=== PATIENT | male | born 1955 | race Caucasian/White ===

== ENCOUNTER 2021-10-23 12:15 | Emergency (ER) | payer BC, MEDICAID ==
[~2021-10-23] VITALS: Ht 170.2 cm; Wt 90.4 kg
[~2021-10-23 12:15] MED LIST: ASPI81CT33 PO; CLOP75TA PO; GLYB5TAB14 PO; METO25TA PO; SIMV80TA67 PO; TRAM50TA3 PO; [UNRECOGNIZED DRUG - CODE] PO; [UNRECOGNIZED DRUG - CODE] PO
[2021-10-23 12:27] VITALS: BP 148/90
--- NOTE | 2021-10-23 12:35 | NUR ---
PT AMB TO BED 6
--- NOTE | 2021-10-23 13:00 | NUR ---
66YO MALE PT C/O R FACIAL NUMBING. PT STATES SUDDEN ONSET THIS MORNING AND WAS UNAWARE UNTIL DAUGHTER NOTICED. PT PRESENTS WITH R SIDED FACIAL WEAKNESS AND UNABLE TO CONTROL FACIAL MUSCLE. DENIES LOSS OF SENSATION OR INJURY. PT ALSO C/O WATERY R EYE AND PRESENTS WITH REDDENED EYE. NO DISCHARGE OR FOREIGN OBJECT NOTED. PT ABLE TO MOVE EYE WITH EASE, DENIES LOSS OF VISION. DENIES CHEST PAIN, N/V/D OR SOB. PT AAOX4, RESPIRATIONS EVEN AND UNLABORED. HX:DIABETES NKA
[2021-10-23 13:20] LABS: BASOPHILS % (AUTO) 0.3 % (0.0-2.0); EOSINOPHILS # (AUTO) 0.1 K/uL (0-0.4); EOSINOPHILS % (AUTO) 1.2 % (0.0-4.0); HEMATOCRIT 45.2 % (36-52); HEMOGLOBIN 15.1 g/dL (12.0-18.0); LYMPHOCYTES # (AUTO) 1.8 K/uL (2.0-11.5); LYMPHOCYTES % (AUTO) 31.5 % (20.5-51.1); MEAN CORPUSCULAR HEMOGLOBIN 29 pg (27-31); MEAN CORPUSCULAR HGB CONC 33 g/dL (33-37); MONOCYTES # (AUTO) 0.5 K/uL (0.8-1.0); MONOCYTES % (AUTO) 9.4 % (1.7-9.3); NEUTROPHILS # (AUTO) 3.2 K/uL (1.8-7.7); NEUTROPHILS % (AUTO) 57.6 % (42.2-75.2); PLATELET COUNT (AUTO) 142 K/uL (140-450); RED BLOOD CELL COUNT(AUTO) 5.14 MIL/uL (4.20-6.10); RED CELL DISTRIBUTION WIDTH 13.7 % (11.6-13.7); WHITE BLOOD COUNT (AUTO) 5.6 K/uL (4.8-10.8)
[2021-10-23 13:53] LABS: ALBUMIN 3.7 g/dL (3.4-5.0); CARBON DIOXIDE 29.2 mmol/L (21-32); POTASSIUM 4.2 mmol/L (3.5-5.1); TOTAL BILIRUBIN 0.6 mg/dL (0.0-1.0)
[2021-10-23] MEDS ORDERED: NACL 0.9% 2,000 ML IV ONE (14:50)
[2021-10-23] MEDS ORDERED: INSULIN REGULAR, HUMAN 100 UNIT/ML VIAL IVP ONE (14:50)
[2021-10-23 15:05] LABS: APPEARANCE,URINE CLEAR (CLEAR); BILIRUBIN,URINE NEGATIVE (NEGATIVE); BLOOD, URINE NEGATIVE (NEGATIVE); COLOR,URINE YELLOW (YELLOW); LEUKOCYTE ESTERASE ,URINE NEGATIVE (NEGATIVE); NITRITE, URINE NEGATIVE (NEGATIVE); UGLUCOSE 3+ (NEGATIVE)
[2021-10-23] MEDS ORDERED: cefTRIAXone 1,000 MG VIAL ONE (15:15)
[2021-10-23] MEDS ORDERED: POLY15SO74 RIGHT EYE (15:25)
[2021-10-23] MEDS ORDERED: PRED20TA5 PO (15:25)
[2021-10-23] MEDS ORDERED: METF-1243 PO (15:25)
[2021-10-23 17:05] VITALS: BP 142/87
--- NOTE | 2021-10-23 17:12 | NUR ---
Patient discharged with v/s stable. Written and verbal after care instructions FOR NICK PALSY given and explained. Patient alert, oriented and verbalized understanding of instructions. Ambulatory with steady gait. All questions addressed prior to discharge. ID band removed. Patient advised to follow up with PMD. Rx of METFORMIN, PREDNISONE AND ARTIFICIAL TEARS 15,ML given.Opportunity to ask questions provided and answered.
--- NOTE | 2021-10-25 19:32 | NUR ---
LATE ENTRY. NS 0.9% BOLUS ENDED AT 1712 ON 10/23/21
== END 2021-10-23 17:12 | disposition home or self-care (01) ==
LOC: MED 12:15
DX: A41.9 Sepsis, unspecified organism (principal); Z20.822 Contact with and (suspected) exposure to COVID-19; E11.65 Type 2 diabetes mellitus with hyperglycemia; I10 Essential (primary) hypertension; I25.10 Atherosclerotic heart disease of native coronary artery without angina pectoris; Z79.4 Long term (current) use of insulin; Z79.899 Other long term (current) drug therapy; Z98.890 Other specified postprocedural states
CPT/HCPCS: 36415; 70450; 80053; 81003; 83605; 85025; 87040; 87426; 96361; 96374; 99291; J1815; J7030; J0696

== ENCOUNTER 2022-05-13 16:27 | Emergency (ER) | payer BC ==
[~2022-05-13] VITALS: Ht 165.1 cm; Wt 87.5 kg
[~2022-05-13 16:27] MED LIST changes: +METF-1243 PO; +POLY15SO74 RIGHT EYE; +PRED20TA5 PO
[2022-05-13 16:36] VITALS: BP 156/85
[2022-05-13] MEDS ORDERED: BACITRACIN OINT 500 UNITS/GM PKT TP ONE (17:15)
[2022-05-13] MEDS ORDERED: LIDOCAINE MPF 1% 10 MG/ML VIAL INJ ONE (17:15)
--- NOTE | 2022-05-13 17:36 | NUR ---
C/O LAC ON THE LEFT HAND, BLEEDING CONTROLLED, NOTED 5CM LAC ON THE DORSAL PORTION OF THE LEFT HANDXTODAY, UNK TDAP, PER PT AN ALUMINUM LADDER FELL AND CAUGHT ON HIS HAND NKA PMH: DM
--- NOTE | 2022-05-13 17:37 | NUR ---
Martin morales in ED - 05/13/22 at 1742 by LYNNE C/O LAC ON THE LEFT HAND, BLEEDING CONTROLLED, NOTED 5CM LAC ON THE DISTAL PORTION OF THE LEFT HANDDEREK DODD PM: CHAIM
[2022-05-13] MEDS ORDERED: IBUP-2213 PO (17:57)
[2022-05-13] MEDS ORDERED: BACI-416 TP (17:57)
--- NOTE | 2022-05-13 18:13 | NUR ---
Patient discharged with v/s stable. Written and verbal after care instructions given and explained. Patient alert, oriented and verbalized understanding of instructions. Ambulatory with steady gait. All questions addressed prior to discharge. ID band removed. Patient advised to follow up with PMD. Rx of BACITRACIN AND IBUPROFEN given. Opportunity to ask questions provided and answered.
--- NOTE | 2022-05-13 18:28 | NUR ---
Note [email or web address] in EDM - 05/13/22 at 1828 by PHSEP Patient discharged with v/s stable. Written and verbal after care instructions given and explained. Patient alert, oriented and verbalized understanding of instructions. Ambulatory with steady gait. All questions addressed prior to discharge. ID band removed. Patient advised to follow up with PMD. Rx of BACITRACIN AND IBUPROFEN given. Opportunity to ask questions provided and answered.
== END 2022-05-13 18:13 | disposition home or self-care (01) ==
LOC: MED 16:27
DX: S61.412A Laceration without foreign body of left hand, initial encounter (principal); I25.10 Atherosclerotic heart disease of native coronary artery without angina pectoris; E11.9 Type 2 diabetes mellitus without complications; I10 Essential (primary) hypertension; Z79.4 Long term (current) use of insulin; Z79.899 Other long term (current) drug therapy; W26.8XXA Contact with other sharp object(s), not elsewhere classified, initial encounter; Y93.89 Activity, other specified; Y92.89 Other specified places as the place of occurrence of the external cause; Y99.8 Other external cause status
CPT/HCPCS: 12002; 90471; 90715; 99283; J2001

== ENCOUNTER 2023-02-12 19:28 | Emergency (ER) | payer BC ==
[~2023-02-12] VITALS: Ht 175.3 cm; Wt 81.6 kg
[~2023-02-12 19:28] MED LIST changes: +BACI-418 TP; +IBUP-2213 PO
[2023-02-12 19:54] VITALS: BP 165/89; PULSE 95; RESP 20; TEMP 98.4; O2SAT 96
[2023-02-12 20:30] VITALS: O2SAT 96
[2023-02-12 20:35] VITALS: O2SAT 96
[2023-02-12] MEDS ORDERED: MORPHINE SULFATE 4 MG/ML SYR IVP ONE (20:35)
[2023-02-12 21:00] LABS: BASOPHILS % (AUTO) 0.3 % (0.0-2.0); HEMATOCRIT 44.7 % (36-52); LYMPHOCYTES # (AUTO) 1.4 K/uL (2.0-11.5); LYMPHOCYTES % (AUTO) 14.1 % (20.5-51.1); MEAN CORPUSCULAR HEMOGLOBIN 30 pg (27-31); MEAN CORPUSCULAR HGB CONC 34 g/dL (33-37); MEAN CORPUSCULAR VOLUME 87.5 fL (80-94); MONOCYTES # (AUTO) 0.7 K/uL (0.8-1.0); MONOCYTES % (AUTO) 6.8 % (1.7-9.3); NEUTROPHILS # (AUTO) 7.8 K/uL (1.8-7.7); NEUTROPHILS % (AUTO) 78.8 % (42.2-75.2); PLATELET COUNT (AUTO) 200 K/uL (140-450); RED BLOOD CELL COUNT(AUTO) 5.11 MIL/uL (4.20-6.10); RED CELL DISTRIBUTION WIDTH 13.3 % (11.6-13.7); WHITE BLOOD COUNT (AUTO) 9.9 K/uL (4.8-10.8)
[2023-02-12 21:23] LABS: ALBUMIN 3.9 g/dL (3.4-5.0); ANION GAP 15.2 (8-16); CALCIUM 9.2 mg/dL (8.5-10.1); CARBON DIOXIDE 29.4 mmol/L (21-32); CREATININE 1.2 mg/dL (0.6-1.3); POTASSIUM 4.6 mmol/L (3.5-5.1); TOTAL BILIRUBIN 0.9 mg/dL (0.0-1.0); TOTAL PROTEIN, SERUM 7.8 g/dL (6.4-8.2)
[2023-02-12 21:29] LABS: LIPASE 42 U/L (16-77)
[2023-02-12] MEDS ORDERED: IBUP-2213 PO ×2 (22:12→23:27)
[2023-02-12] MEDS ORDERED: OMEP40EC23 PO ×2 (22:12→23:27)
[2023-02-12] MEDS ORDERED: MIRABULK PO ×2 (22:12→23:27)
[2023-02-12] MEDS ORDERED: HYDROcodone/APAP 5/325 MG 1 TAB TAB PO ONE (23:20)
== END 2023-02-12 23:28 | disposition home or self-care (01) ==
LOC: MED 19:28
DX: R10.13 Epigastric pain (principal); K59.00 Constipation, unspecified; I11.9 Hypertensive heart disease without heart failure; E11.9 Type 2 diabetes mellitus without complications; Z79.4 Long term (current) use of insulin; Z79.899 Other long term (current) drug therapy
CPT/HCPCS: 36415; 71045; 74176; 80053; 83690; 83880; 84484; 85025; 93005; 96374; 99285; J2270

== ENCOUNTER 2023-08-14 18:50 | Emergency (ER) | payer BC ==
[~2023-08-14] VITALS: Ht 172.7 cm; Wt 85.7 kg
[~2023-08-14 18:50] MED LIST changes: +MIRABULK PO; +OMEP40EC23 PO
[2023-08-14 18:57] VITALS: BP 115/68; PULSE 71; RESP 18; TEMP 96.9; O2SAT 98
[2023-08-14] MEDS: ASPIRIN 325 MG TAB PO ONE (19:42)
== END 2023-08-14 19:50 | disposition left against medical advice (07) ==
LOC: MED 18:50
DX: R07.9 Chest pain, unspecified (principal); I11.9 Hypertensive heart disease without heart failure; E11.9 Type 2 diabetes mellitus without complications; Z79.4 Long term (current) use of insulin; Z79.899 Other long term (current) drug therapy
CPT/HCPCS: 93005; 99283